=== PATIENT | male | born 1960 | race Two or more races ===

== ENCOUNTER → 2022-01-28 | Emergency (ER) | payer OTHER ==
[~2022-01-28] VITALS: Ht 170.2 cm; Wt 88.5 kg
[~2022-01-28] MED LIST: CIPRO500 MG PO; DIOVAN40 MG PO; ZANTAC300 MG PO
== END | disposition home or self-care (01) ==
LOC: ER 10:29
DX: Z20.822 Contact with and (suspected) exposure to COVID-19 (principal)

== ENCOUNTER 2022-04-24 03:00 | Emergency (ER) | payer OTHER ==
[~2022-04-24] VITALS: Ht 170.2 cm; Wt 90.7 kg
== END 2022-04-24 07:33 | disposition home or self-care (01) ==
LOC: ER 03:00
DX: J39.2 Other diseases of pharynx (principal); R09.82 Postnasal drip; I10 Essential (primary) hypertension; Z88.6 Allergy status to analgesic agent

== ENCOUNTER 2022-09-15 19:21 | Inpatient (IN) | payer OTHER ==
[~2022-09-15] VITALS: Ht 170.2 cm; Wt 83.0 kg
== END 2022-09-21 09:39 | disposition designated cancer center or children's hospital (05) | DRG 281 ==
LOC: ER 19:21 → MEDJ 23:20
PROVIDERS: ADMIT Internal Medicine; ATTEND Internal Medicine
PROC: B246ZZZ Ultrasonography of Right and Left Heart (ICD-10-PCS; principal; 2022-09-15)
PROC: 4A12X4Z Monitoring of Cardiac Electrical Activity, External Approach (ICD-10-PCS; 2022-09-16)
DX: I21.4 Non-ST elevation (NSTEMI) myocardial infarction (principal); Q23.1 Congenital insufficiency of aortic valve; I24.9 Acute ischemic heart disease, unspecified; I10 Essential (primary) hypertension; D69.6 Thrombocytopenia, unspecified